=== PATIENT | female | born 1975 | race Two or more races ===

== ENCOUNTER 2016-09-08 07:18 | Inpatient (IN) | payer OTHER ==
[2016-09-08] MEDS ORDERED: MISOPROSTOL 25 MCG TABLET SL ONE (08:18)
[2016-09-08] MEDS ORDERED: LACTATED RINGERS 1,000 ML IV SCH (08:23)
[2016-09-08] MEDS ORDERED: OXYTOCIN IN LR 500 ML IV ONE (08:23)
[2016-09-08] MEDS ORDERED: PENICILLIN G POTASSIUM 5 MMU in NS 0.9% (MINI-BAG PLUS) 100 ML IV ONE (08:23)
[2016-09-08 08:50] VITALS: BMI 41.8
--- NOTE | 2016-09-08 08:53 | PCMAN ---
OB Admission Note - History : 3 Term: 1 : 0 Abortions (S&E): 1 Livin EDC:: 09/23/16 Gestational Age (weeks): 37 Days (#/7): 6 Admit Cervical Dilation:: 0 Admit Cervical Effacement (%):: 20 Admit Station:: -3 Admit Presentaton:: vertex per US Membrane Status: Intact Contractions: No Heart Rate:: 140 (moderate variability, pos accels) Status:: Cat 1 EFW:: 8.25lbs Summary of Course:: HPI: Aleisha is a 41yo at 37w6d presenting for IOL for gestational hypertension. She denies fever, chills, MALCOLM, epigastric pain, and edema. Course: Aleisha initiated care at 11w6d with the midwives for a total of 13 visits. Her prepregnancy BMI was 38.3 with a TWG of 18 lbs this . Dates are by sure LMP consistent with 15w5d US. This is a planned and she plans to breastfeed. This complicated by: BV at 11w6d - unclear if ever treated mild HTN onset at 32 weeks with weekly PIH labs WNL and weekly NST/BPPs WNL pericardial effusion noted at 34 week US, consult with MFM verified that this was WNL for this GA. 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 No tobacco, EtOH or recreational drugs, in a stable safe relationship - Labs Blood Type: O (+) positive Hct/Hgb:: 12.8/39.5 Rubella Status: Immune GBS Status: Positive Other Labs:: Weekly PIH labs WNL since 32w - Review of Systems Complete ROS is negative except for lower abdominal discomfort consistent with third trimester. She denies s/s preeclampsia and labor. Reports active fetus. - Physical Exam General: Afebrile Psych/Mental Status: Mood/Affect Appropriate, Judgment/Insight Intact Neurological: Grossly Intact, Alert, Oriented x 4 HEENT: Atraumatic Lungs: Clear to Auscultation Bilaterally, Normal Air Movement Cardiovascular: Regular Rate and Rhythm, Normal S1, Normal S2 Abdomen: Other (Leopolds back on left) Genitourinary: Normal Female Genitalia Rectal Exam: Deferred Extremities: Full ROM, Normal Cap Refill, Normal Pulses, Other (bilateral varicosities extending from ankles to thighs. No erythema or painful tender spots.) Skin: Normal Color, Warm - Problems (1) Gestational hypertension Status: Acute Code: O13.9Assessment/Plan: A: Undelivered 41 yo IUP at 37w6d gestational HTN AMA Obesity Bilateral varicosities GBS + Arango score 2 Fetus Cat 1 Vertex per US P: Admit for IOL Eat breakfast Initiate IV access and draw baseline PIH labs Cervical ripening with 25mcg miso SL cEFM per protocol Plan to initiate PCN prophylaxis with ROM or onset of active labor Recheck in 4 hours or when clinically indicated. Anticipate active labor and .
[2016-09-08] MEDS ORDERED: IV START KIT ONE (09:01)
[2016-09-08] MEDS ORDERED: OXYTOCIN 10 UNITS/ML VIAL ONE (09:01)
[2016-09-08] MEDS ORDERED: LACTATED RINGERS 1,000 ML ONE (09:02)
[2016-09-08] MEDS ORDERED: MINERAL OIL 25 ML BOT ONE (09:02)
[2016-09-08] MEDS ORDERED: LIDOCAINE Viscous 2% 15 ML UDCUP ONE (09:02)
[2016-09-08] MEDS ORDERED: OXYTOCIN IN LR 0 ML IV ONE (09:02)
[2016-09-08] MEDS ORDERED: LIDOCAINE 1% (PRES FREE) 30 ML VIAL ONE (09:02)
[2016-09-08] MEDS ORDERED: PUMP TUBING ONE (09:02)
[2016-09-08 09:53] LABS: HEMATOCRIT 38.1 % (37.0-47.0); HEMOGLOBIN 12.3 gm/l (12.0-16.0); MEAN CELL VOLUME 89.9 fl (81.0-99.0); MEAN CORPUSCULAR HGB CONC 32.3 g/dl (33.0-37.0); RED CELL DISTRIBUTION WIDTH 14.3 % (11.5-14.5)
[2016-09-08 10:14] LABS: ALBUMIN 3.2 gm/dL (3.5-5.7); CALCIUM 9.5 mg/dL (8.6-10.3)
[2016-09-08 10:27] LABS: CREATININE,RANDOM URINE 49 mg/dL
--- NOTE | 2016-09-08 14:31 | PDOC36 ---
Provider Note Subject: Induction Progress Note Note: S: Aleisha is feeling ready to get up and walk. O: VS BP 130/68 T98.9F RR18 P100 SVE deferred FHT 155 Moderate variability, pos accels, neg decels no ctx SVE deferred Laboratory Last Values WBC 11.8 K/mm3 (4.0-10.5) H 09/08/16 09:30 RBC 4.24 M/mm3 (4.20-5.40) 09/08/16 09:30 Hgb 12.3 gm/l (12.0-16.0) 09/08/16 09:30 Hct 38.1 % (37.0-47.0) 09/08/16 09:30 MCV 89.9 fl (81.0-99.0) 09/08/16 09:30 MCH 29.0 pg (27.0-31.0) 09/08/16 09:30 MCHC 32.3 g/dl (33.0-37.0) L 09/08/16 09:30 RDW 14.3 % (11.5-14.5) 09/08/16 09:30 Plt Count 253 K/mm3 (130-400) 09/08/16 09:30 Sodium 134 mEq/L (135-145) L 09/08/16 09:30 Potassium 3.9 mEq/L (3.6-5.0) 09/08/16 09:30 Chloride 103 mEq/L (98-107) 09/08/16 09:30 Carbon Dioxide 23 mEq/L (21-31) 09/08/16 09:30 Anion Gap 12 mEq/L (8-16) 09/08/16 09:30 BUN 8 mg/dL (7-25) 09/08/16 09:30 Creatinine 0.5 mg/dL (0.6-1.3) L 09/08/16 09:30 Estimated GFR 137 mL/min (60-99) H 09/08/16 09:30 BUN/Creatinine Ratio 16 (6-20) 09/08/16 09:30 Glucose 95 mg/dL (70-100) 09/08/16 09:30 Calcium 9.5 mg/dL (8.6-10.3) 09/08/16 09:30 Total Bilirubin 0.2 mg/dL (0.2-1.0) 09/08/16 09:30 AST 17 U/L (13-39) 09/08/16 09:30 ALT 17 U/L (7-52) 09/08/16 09:30 Alkaline Phosphatase 138 U/L (34-104) H 09/08/16 09:30 Total Protein 6.5 gm/dL (6.4-8.9) 09/08/16 09:30 Albumin 3.2 gm/dL (3.5-5.7) L 09/08/16 09:30 Globulin 3.3 gm/dL (2.3-3.5) 09/08/16 09:30 Albumin/Globulin Ratio 1.0 (>1.0) 09/08/16 09:30 Ur Random Creatinine 49 mg/dL 09/08/16 09:40 U Random Total Protein 11 mg/dL 09/08/16 09:40 Protein/Creatinin Ratio 224 mg/g 09/08/16 09:40 A: Undelivered 41 yo IUP at 37w6d VSS gestational HTN AMA Obesity Bilateral varicosities GBS + Arango score 2 Fetus Cat 1 PIH labs WNL P: Walk for 20 mins, eat lunch and continue cervical ripening with 50 mcg misoprostol cEFM per protocol Plan to initiate PCN prophylaxis with ROM or onset of active labor Recheck in 4 hours or when clinically indicated. Anticipate active labor and .
[2016-09-08] MEDS ORDERED: MISOPROSTOL 25 MCG TABLET ONE (15:45)
[2016-09-08] MEDS: MISOPROSTOL 25 MCG TABLET SL SCH ×2 (15:52→20:50)
--- NOTE | 2016-09-08 21:30 | PDOC36 ---
Provider Note Subject: labor progress note - miso #3 Note: S: Aleisha is lying in bed after eating dinner. Notes she feels BHs and they are not getting worse. O: VE: 0.5/30/-4, mid-position, soft, Bishops #3 CTX: q 4-6min, lasting 30-45s, mild TOCO: 150/moderate variability/accels present/decels absent. Large periods of time difficult to trace due to BMI and active movement. Vitals: BP: 145/85, P: 112, R: 18, T: 37.4 Note: Elevated BPs (185/85 and 165/88 at 1056 and 1057 respectively), noted by RN to be taken with small cuff. RNs now using large cuff. A: with IUP at 27w6d Cervical Ripening/IOL for gHTN, without proteinuria Misoprostol SL 25mcg x 1, 50mcg x 2 Normotensive AMA Obesity BMI 38.8 FHT: Cat. I P: Reviewed minimal progress, recommended another dose (3rd) of misoprostol SL. Will consider renner balloon if dilated at next exam. Encouraged sleep and rest. Reassess in 4hrs.
[2016-09-09] MEDS ORDERED: ACETAMINOPHEN 500 MG TABLET PO ONE (01:09)
[2016-09-09] MEDS ORDERED: HYDROXYZINE PAMOATE 50 MG CAPSULE PO ONE (01:12)
[2016-09-09] MEDS: MISOPROSTOL 25 MCG TABLET SL SCH ×4 (01:23→14:53)
--- NOTE | 2016-09-09 01:48 | PDOC36 ---
Provider Note Subject: labor progress note - miso #4 and tylenol Note: S: Aleisha is lying in bed, she has been sleeping off and on. States she wakes up with contractions, even though they are not very painful. Is not reporting sensation of all contractions. O: VE: deferred (last 0.5/30/-4, mid-position, soft, Bishops #3) CTX: no change (q 4-6min, lasting 30-45s, mild) TOCO: 150/moderate variability/accels present/decels absent. Vitals: BP: 121/81, P: 105, R: 18, T: 100.2 A: with IUP at 28w0d Cervical Ripening/IOL for gHTN, without proteinuria Misoprostol SL 25mcg x 1, 50mcg x 3 Normotensive AMA Obesity BMI 38.8 FHT: Cat. I P: 4th dose of misoprostol SL given. Will reassess cervix in 4hrs for possible use of renner. Reviewed rising temperature in the absence of labor, ruptured membranes, tachycardia. Encouraged PO hydration and Tylenol given. Will continue to monitor. Encouraged rest. Recommended vistaril to aid with sleep. Aleisha would like to see how she feels after the Tylenol.
[2016-09-09] MEDS: LACTATED RINGERS 1,000 ML IV PRN ×4 (03:51→17:00)
--- NOTE | 2016-09-09 07:50 | PDOC36 ---
Provider Note Subject: labor progress note - cook placement Note: S: Aleisha is lying in bed, she has been sleeping off and on. States she feels contractions but is able to talk through them. O: VE: 3/50/-3, posterior-midposition. soft, Bishops #6 CTX: irregular TOCO: 150/moderate variability/accels present/decels absent. Vitals: BP: 136/73, P: 92, R: 18, T: 98.2 A: with IUP at 28w0d Cervical Ripening/IOL for gHTN, without proteinuria Afebrile, VSS AMA Obesity BMI 38.8 FHT: Cat. I P: Reviewed improved cervical progress. Given continued need for effacement, recommended cook catheter that will also allow for movement, shower, and eating breakfast. Will reassess when falls out. Encouraged upright positioning out of bed, walking, increased activity.
[2016-09-09] MEDS ORDERED: OXYTOCIN IN LR 500 ML IV PRN ×2 (12:12→14:02)
[2016-09-09] MEDS ORDERED: LACTATED RINGERS 1,000 ML IV SCH ×2 (12:15→22:55)
[2016-09-09] MEDS ORDERED: PUMP TUBING ONE (13:19)
[2016-09-09] MEDS ORDERED: OXYTOCIN IV PRN (14:00)
[2016-09-09] MEDS ORDERED: LACTATED RINGERS IV PRN (14:00)
[2016-09-09 16:22] LABS: ABSOLUTE NEUTROPHIL COUNT 6.7 K/mm3 (1.8-7.7); BASO % 0.2 % (0.2-1.0); EOS % 0.5 % (0.9-2.9); HEMATOCRIT 36.9 % (37.0-47.0); HEMOGLOBIN 12.1 gm/l (12.0-16.0); IMM NEUT% 0.4 % (0-1); LYMPH # 0.8 (1.0-4.8); LYMPH % 9.4 % (15-45); MEAN CELL VOLUME 88.5 fl (81.0-99.0); MEAN CORPUSCULAR HGB CONC 32.8 g/dl (33.0-37.0); MEAN PLATELET VOLUME 11.3 fl (7.4-10.4); MONO # 0.9 (0.0-0.8); MONO % 10.6 % (4-12); NEUT % 78.9 % (43-75); PLATELET COUNT 232 K/mm3 (130-400); RED CELL DISTRIBUTION WIDTH 14.5 % (11.5-14.5)
[2016-09-09 16:39] LABS: ALB/GLOB RATIO 0.9 (>1.0); ALBUMIN 3.2 gm/dL (3.5-5.7); CALCIUM 8.9 mg/dL (8.6-10.3); URIC ACID 4.1 mg/dL (2.3-7.6)
[2016-09-09 16:49] LABS: CREATININE,RANDOM URINE 64 mg/dL
[2016-09-09] MEDS: PENICILLIN G 3 MIL UNIT PREMIX 3 MMU in Premix (D5W) 50 ml 1 EACH IV SCH ×2 (17:06→17:07)
[2016-09-09] MEDS ORDERED: LACTATED RINGERS 1,000 ML ONE (17:14)
[2016-09-09] MEDS ORDERED: IV START KIT ONE (17:14)
--- NOTE | 2016-09-09 17:16 | PDOC36 ---
Provider Note Subject: labor progress note - pitocin Note: Note: S: Aleisha is has been up walking, sitting on ball and in rocking chair. Noted to be Oblique breech by bedside ultrasound and leopolds only to be found to be cephalic on repeat ultrasound following void. O: VE: no change. Balloon fell out with 700ml void. (prior exam: /-3, posterior-midposition. soft, Bishops #6) CTX: q 10min TOCO: 155/moderate variability/accels present/decels absent. Vitals: BP: 129/72, P: 101, R: 18, T: 98.7 A: with IUP at 28w0d IOL for gHTN, without proteinuria Unstable Lie, noted cephalic with bedside ultrasound x2 Afebrile, VSS AMA Obesity BMI 38.8 FHT: Cat. I P: Reviewed unstable lie and suspected progress from cook balloon falling out. Abdominal binder and oxytocin administration ordered to be initiated. Recommended up right positions and walking as able and tolerated.
[2016-09-09] MEDS ORDERED: NS 0.9% (MINI-BAG PLUS) 100 ML IV ONE (19:15)
[2016-09-09] MEDS ORDERED: PENICILLIN G POTASSIUM 5 MMU VIAL ONE (19:15)
[2016-09-09] MEDS ORDERED: PENICILLIN G POTASSIUM 5 MMU in NS 0.9% (MINI-BAG PLUS) 100 ML IV ONE (19:15)
[2016-09-09] MEDS: LACTATED RINGERS 1,000 ML IV SCH ×3 (20:40→23:40)
--- NOTE | 2016-09-09 21:25 | PDOC36 ---
Provider Note Subject: Attempted AROM Note: S: Pt is feeling the contrx some, ashley low and in front. We discussed in Lao and in Lao about the slow cervical ripening. Pt does not appear to have moved into the active phase of labor as yet. The possibility of needling the membranes was explained. O: 41yo G3 para 1011, now at 38wks gestation, admitted yesterday due to gestational htn. She has had 4 doses of miso, followed by the [place] balloon and low dose pitocin. She is on IV PCN for GBS prophylaxis. She passed the balloon with 80cc of saline in it. FH 150-155 baseline with adequate variability, category 1 Contrx are difficult to monitor but seem to be regular q2-3min, mild BP 151/88 EFW 7lbs, cephalic, confirmed by hand-held US, girl per pt VE cervix, floppy, soft, stretchy ext os 5cm+ Int os 4cm and not stretchy but vertex is well applied to this int os which is very thin, -4station AROM attempted with amnio hook, but no forebag and no fluid obtained. Imp: Exam was difficult and painful for Aleisha. I am hoping it ruptured the chorion and perhaps the amnion also. Baby's head is firmly applied and did not move upward at all with the exam. Plan: Expectant, upright posture, position change Re-eval in 2 hours if no obvious change.
[2016-09-09] MEDS ORDERED: FENTANYL/ROPIVACAINE EPIDURAL 250 ML EP ONE (21:26)
[2016-09-09] MEDS ORDERED: EPIDURAL PUMP SET ONE (21:26)
[2016-09-09] MEDS ORDERED: EPIDURAL PROCEDURE TRAY ONE (22:36)
[2016-09-09] MEDS ORDERED: ROPIVACAINE 0.5% 30 ML VIAL ONE (22:36)
[2016-09-09] MEDS ORDERED: DIPHENHYDRAMINE HCL 50 MG/1 ML VIAL IV PRN (22:55)
[2016-09-09] MEDS ORDERED: METOCLOPRAMIDE HCL 5 MG/ML 2ML VIAL IV PRN (22:55)
[2016-09-09] MEDS ORDERED: NALOXONE HCL 0.4 MG/ML VIAL IV PRN (22:55)
[2016-09-09] MEDS ORDERED: LACTATED RINGERS 500 ML IV PRN (22:55)
[2016-09-09] MEDS ORDERED: SODIUM CHLORIDE 0.9% 500 ML IV PRN (22:55)
[2016-09-09] MEDS ORDERED: ONDANSETRON 4 MG/2ML 2 ML VIAL IV PRN (22:55)
[2016-09-09] MEDS ORDERED: NALBUPHINE HCL 20 MG/ML AMP IV PRN (22:55)
[2016-09-09] MEDS ORDERED: EPHEDRINE SULFATE 50 MG/ML 1ML VIAL IV PRN (22:55)
--- NOTE | 2016-09-09 23:13 | PDOC36 ---
Provider Note Subject: Labor Progress Note Note: S: Patient resting in bed and comfortable. Reports that pain has been unchanged after starting pitocin. Feels contractions more frequently as cramping pain in the front. O: EFM: 155-160/moderate variability/accels present/decels absent [place]: q 3-4 mins, mild to palpation SVE: 3/60/-3 (ext os 6 cm) VS: BPs 121-140/62-74, HR 101, T 98.7 F GBS prophylaxis started at 1914 Pitocin at 9 mU/min A: IOL for GHTN; PET labs WNL BPs stable in mild range Early labor; cervical ripening with miso x 4 and Cooks catheter Bishops score FHR Cat 1 GBS positive P: Discussed with patient limited progress and sensation since starting pitocin augmentation. Discussed and recommended AROM augmentation. Patient agrees with recommendation. Consulted with [facility] due to high station (see note). Attempted AROM; encouraged continued upright positions and mobility. Will reassess for another attempt at AROM in 2 hours if no change.
[2016-09-09] MEDS ORDERED: PENICILLIN G 3 MIL UNIT PREMIX 3 MMU in Premix (D5W) 50 ml 1 EACH IV SCH (23:15)
[2016-09-09] MEDS ORDERED: PENICILLIN G 3 MIL UNIT PREMIX 50 ML IV ONE (23:37)
--- NOTE | 2016-09-10 01:24 | PDOC36 ---
Provider Note Subject: Labor Progress Note Note: S: Repeated late decels noted at 2232 with variable x 2 mins at 2312. Went to patient's room to assess patient. Patient resting in bed and comfortable with epidural. Denies feeling any pressure. O: EFM: 160/minimal variability/no accels/late decels (immediately pos variable decel to 90s x 2 mins) [place]: q 2-3 mins, moderate to palpation SVE: 7/70/-2 Pitocin at 9 mU/min VS: 100/51, HR 103, T 99.9F A: Active labor; progressing along normal curve IOL for GHTN and AMA AROM and pitocin augmentation Hypotension secondary to epidural anesthesia FHR Cat 2 GBS positive; receiving antibiotics P: FSE placed. Intrauterine resuscitation (fluid bolus, reposition, ephedrine IV). Closely monitor status. If no improvement after 30 mins, stop pitocin, administer another fluid bolus and administer O2.
[2016-09-10] MEDS ORDERED: OXYTOCIN IN LR 500 ML IV ONE (01:52)
[2016-09-10] MEDS ORDERED: FLU VACC 2016-17 (36MO-64Y)/PF 60 MCG/0.5 ML SYRINGE IM V ONE (02:10)
[2016-09-10] MEDS ORDERED: LANOLIN 50 APPLIC/7G TUBE TP PRN (02:19)
[2016-09-10] MEDS ORDERED: DOCUSATE SODIUM 100 MG CAPSULE PO PRN (02:19)
[2016-09-10] MEDS ORDERED: HYDROCODONE/ACETAMINOPHEN 5/325MG TABLET PO PRN (02:19)
[2016-09-10] MEDS ORDERED: CALCIUM CARBONATE 500 MG TAB.CHEW PO PRN (02:19)
[2016-09-10] MEDS ORDERED: BENZOCAINE/MENTHOL 60 APPLIC/BOT TP PRN (02:19)
[2016-09-10] MEDS ORDERED: IBUPROFEN 800 MG TABLET PO SCH (02:30)
--- NOTE | 2016-09-10 02:32 | PCMDEL ---
Delivery Note - Labor 1st stage (hr/min):: 6 hours 16 mins 2nd stage (hr/min):: 6 mins 3rd stage (hr/min):: 8 mins Total (hr/min):: 6 hours 30 mins Pushed (hr/min):: 6 mins - Delivery Delivery (Date): 09/10/16 Delivery (Time): 01:47 Infant Gender: Female Presentation: Cephalic Position: OA Umbilical Cord: 3 Vessel Delayed Cord Clamping:: > 3 min 1 Minute Total: 9 5 Minute Total: 9 Placenta:: Krishna, complete EBL:: 700 Perineum:: Second degree laceration Suture:: 3.0 vicryl Anesthesia/Meds:: epidural Length ROM:: 5 hours Comments:: Admitted for IOL due to GHTN and AMA. Received misoprostol x 4 doses, Cook catheter, pitocin and AROM augmentation. Progressed into active labor after AROM augmentation. Received epidural anesthesia. FHR Cat 1 and 2 during first stage due to periods of minimal variability, repetitive lates and a variable decel after post epidural hypotension. Intrauterine resuscitation with fluid, O2 and position changes. FHR monitored closely via FSE. Fetus tachycardic in the 170s shortly before delivery and stabilized after delivery. Maternal temps remained below criteria for chorio and fluid remained clear. BPs remained in mild to moderate range in labor; PIH labs normal. Spontaneous sensation of pressure once C/C/+1. Pushed successfully for of viable female infant. Vigorous with spontaneous cries and respirations. Placed on maternal abdomen. DCC x 5 mins. AMSTL with IV pitocin. Spontaneous detachment and delivery of intact placenta in Krishna presentation. Perineum inspected; two vigorously bleeding vessels in shallow second degree perineal laceration. Vessels clamped and hemostatic after figure eight stitch. Laceration repaired with good approximation and hemostasis. EBL 700 mL. Mother and infant stable in immediate period.
[2016-09-10] MEDS: LACTATED RINGERS 1,000 ML IV PRN (02:59)
[2016-09-10] MEDS ORDERED: FENTANYL/ROPIVACAINE EPIDURAL 250 ML EP SCH (06:00)
[2016-09-10 10:18] LABS: ABSOLUTE NEUTROPHIL COUNT 6.6 K/mm3 (1.8-7.7); BASO % 0.2 % (0.2-1.0); EOS % 0.5 % (0.9-2.9); HEMATOCRIT 31.1 % (37.0-47.0); HEMOGLOBIN 10.3 gm/l (12.0-16.0); IMM NEUT% 0.3 % (0-1); LYMPH # 1.3 (1.0-4.8); LYMPH % 15.1 % (15-45); MEAN CELL VOLUME 87.6 fl (81.0-99.0); MEAN CORPUSCULAR HGB CONC 33.1 g/dl (33.0-37.0); MEAN PLATELET VOLUME 12.4 fl (7.4-10.4); MONO # 0.8 (0.0-0.8); NEUT % 74.9 % (43-75); PLATELET COUNT 187 K/mm3 (130-400); RED CELL DISTRIBUTION WIDTH 14.6 % (11.5-14.5)
--- NOTE | 2016-09-10 11:13 | PDOC39B ---
Hospital Course: ADMIT DATE: 09/08/16 DISCHARGE DATE: 09/10/16 ADMISSION DIAGNOSES: Gestational hypertension PROCEDURES: HISTORY OF PRESENT ILLNESS: 41 year old G3 T1 L1 at 37 weeks 6 days presenting with gestational hypertension for induction of labor. HOSPITAL COURSE: The patient was admitted with an unfavorable cervix and an unstable lie. Received misoprostol x 4 doses, Cook catheter, pitocin and AROM augmentation, and 2 doses of penicillin for GBS positive status. Progressed into active labor after AROM augmentation. Received epidural anesthesia. FHR Cat 1 and 2 during first stage due to periods of minimal variability, repetitive lates and a variable decel after post epidural hypotension. Intrauterine resuscitation with fluid, O2 and position changes. FHR monitored closely via FSE. Fetus tachycardic in the 170s shortly before delivery and stabilized after delivery. Maternal temps remained below criteria for chorio and fluid remained clear. BPs remained in mild to moderate range in labor; PIH labs normal. Had an with 700cc qbl primarily from perineal laceration. Currently, the patient is stable, with blood pressures ranging from 100-145/60- 78. Her AM pre-eclampsia panel is pending. She reports baby latched well immediately after but has not been put to breast since transfer to nursery for fever. She is very motivated to remain with baby and have the opportunity to establish and to mandel. - Physical Exam Vital Signs: Temp Pulse Resp BP Pulse Ox 98.3 F 103 18 100/67 09/10/16 05:54 09/10/16 05:54 09/10/16 05:54 09/10/16 05:54 General: Afebrile Psych/Mental Status: Mood/Affect Appropriate Neurological: Grossly Intact Lungs: Clear to Auscultation Bilaterally Cardiovascular: Regular Rate and Rhythm Breast: Soft, Nipples Intact Fundus: Firm, Midline, At Umbilicus Genitourinary: Normal Female Genitalia Lochia: Moderate Rectal Exam: Deferred Extremities: Other (large varicosities, bilaterally) Skin: Warm, Dry - Discharge Diagnosis (1) care following vaginal delivery Status: AcuteAssessment/Plan: A: Stable , hypertension stable P: Transfer to [facility] to be near baby who is transported to [facility] - Discharge Plan Condition: Stable Disposition: Other Facility, Not Listed Additional Instructions: Midwifery 'After the ' handout given to patient. Follow-Up: Jailene Dillard CNM [Certified Nurse [employer]oth [employer]ing Utility Worker] - In 2 weeks
[2016-09-10 11:14] VITALS: BP 117/59
== END 2016-09-10 12:45 | disposition other institution (70) | DRG 775 ==
LOC: FBC 07:18 → EDSTATUS 09-24 12:49
PROVIDERS: ADMIT Advanced Practice Midwife; ATTEND Licensed Practical Nurse
PROC: 3E0P7GC Introduction of Other Therapeutic Substance into Female Reproductive, Via Natural or Artificial Opening (ICD-10-PCS; 2016-09-08)
PROC: 10907ZC Drainage of Amniotic Fluid, Therapeutic from Products of Conception, Via Natural or Artificial Opening (ICD-10-PCS; 2016-09-09)
PROC: 10E0XZZ Delivery of Products of Conception, External Approach (ICD-10-PCS; principal; 2016-09-10)
PROC: 0KQM0ZZ Repair Perineum Muscle, Open Approach (ICD-10-PCS; 2016-09-10)
DX: O13.4 Gestational [pregnancy-induced] hypertension without significant proteinuria, complicating childbirth (principal); O75.89 Other specified complications of labor and delivery; I31.3 Pericardial effusion (noninflammatory); O99.214 Obesity complicating childbirth; E66.9 Obesity, unspecified; Z68.38 Body mass index [BMI] 38.0-38.9, adult; O99.824 Streptococcus B carrier state complicating childbirth; O09.523 Supervision of elderly multigravida, third trimester; O76 Abnormality in fetal heart rate and rhythm complicating labor and delivery; O70.1 Second degree perineal laceration during delivery; Z37.0 Single live birth; Z3A.38 38 weeks gestation of pregnancy